=== PATIENT | female | born 1995 | race Caucasian/White ===

== ENCOUNTER 2017-07-24 22:08 | Emergency (ER) | payer BC ==
[~2017-07-24] VITALS: Ht 160 cm; Wt 90.7 kg
[~2017-07-24 22:08] MED LIST: BIRTH CONTORL; NITR-65 PO; PHEN-640 PO
--- OUTSIDE RECORDS SUMMARY | 2017-07-24 22:14 | XMS REPORT | Continuity of Care Document ---
Author Author [employer] Organization [facility] Address Unknown Phone Unavailable Care Team Providers Care Behavioral Health Specialist Name Role Phone [employer] Unavailable Unavailable Problems Medications Medication Details Route Status Patient Instructions Ordering Provider Order Date Source naproxen sodium 275 mg oral tablet 550 mg=2 tablet, PO , TID, x 4 day(s), # 24 tablet, Refill(s) 0 PO Active [facility] Reglan 10 mg oral tablet 10 mg=1 tablet, PO, TID, x 4 day(s), # 12 tablet, Refill(s) 0 PO Active [facility] freetext medication *NF* Active [facility] buffered lidocaine 1% in J-Tip 04/07/13 15:44:00 CDT, [id number], Routine, 0.2 mL, Intradermal, Injection, Unscheduled, PRN Needle Sticks Intradermal Active [facility] Allergies, Adverse Reactions, Alerts Immunizations Results Vital Signs Vital Sign Value Date Comments Source Total Pain Calculation 2 12/2012 [facility] Total Pain Calculation 2 12/2012 [facility] Respiratory Rate Monitored 23 BR/min 04/07/2013 [facility] Heart Rate Monitored 85 bpm 04/07/2013 [facility] Mean Arterial Pressure Cuff Monitored 77 mm[Hg] 04/07/2013 [facility] Diastolic Blood Pressure Cuff Monitored 53 mm[Hg] 04/07/2013 [facility] Systolic Blood Pressure Cuff Monitored 114 mm[Hg] 04/07/2013 [facility] Diastolic Blood Pressure Cuff Monitored 53 mm[Hg] 04/07/2013 [facility] Heart Rate Monitored 86 bpm 04/07/2013 [facility] Mean Arterial Pressure Cuff Monitored 77 mm[Hg] 04/07/2013 [facility] Systolic Blood Pressure Cuff Monitored 116 mm[Hg] 04/07/2013 [facility] Respiratory Rate Monitored 25 BR/min 04/07/2013 [facility] Respiratory Rate Monitored 13 BR/min 04/07/2013 [facility] Heart Rate Monitored 98 bpm 04/07/2013 [facility] Diastolic Blood Pressure Cuff Monitored 58 mm[Hg] 04/07/2013 [facility] Systolic Blood Pressure Cuff Monitored 120 mm[Hg] 04/07/2013 [facility] NBP Cuff Sizes Adult
(04/07/2013 16:23:00) <sup> </sup> 04/07/2013 [facility] NBP Activity Calm
(04/07/2013 16:23:00) <sup> </ sup> 04/07/2013 [facility] NBP Extremity Arm, left
(04/07/2013 16:23:00) < sup> </sup> 04/07/2013 [facility] NBP Position Lying
(04/07/2013 16:23:00) <sup> </ sup> 04/07/2013 [facility] NBP Extremity Arm, right
(04/07/2013 14:14:00) < sup> </sup> 04/07/2013 [facility] NBP Cuff Sizes Adult
(04/07/2013 14:14:00) <sup> </sup> 04/07/2013 [facility] NBP Position Sitting
(04/07/2013 14:14:00) <sup> </sup> 04/07/2013 [facility] Heart Rate 100 bpm 2012 [facility] Temperature Celsius 36.7 Karlee 04/07/2013 [facility] Temperature Route Oral
(04/07/2013 14:10:00) <sup > </sup> 04/07/2013 [facility] Respiratory Rate 16 BR/min [facility] NBP Activity Calm
(04/07/2013 14:10:00) <sup> </ sup> 04/07/2013 [facility] NBP Position Sitting
(04/07/2013 14:10:00) <sup> </sup> 04/07/2013 [facility] NBP Extremity Arm, left
(04/07/2013 14:10:00) < sup> </sup> 04/07/2013 [facility] NBP Cuff Sizes Adult
(04/07/2013 14:10:00) <sup> </sup> 04/07/2013 [facility] Encounters Location Location Details Encounter Type Encounter Number Reason For Visit Attending Provider ADM Date DC Date Status Source [facility] [id number] Headache/Migraine Shalonda Goyal 04/07/2013 04/07/2013 Active [facility] Procedures Plan of Care Social History Assessment and Plan Family History Advance Directives Functional Status
--- OUTSIDE RECORDS SUMMARY | 2017-07-24 22:14 | XMS REPORT | Clinical Summary ---
Author Author [facility] Address Unknown Phone Unavailable Support Name Relationship Address Phone , Lara Garciadayami Trivedi [employer] [address] [place] [address] Allergies No Known Allergies Current Medications Prescription Sig. Disp. Refills Start End Date Status Date NORTREL 0.5/35, 28, 03/09/20 Active 0.5-35 MG-MCG per tablet 13 Active Problems Problem Noted Date Depression 03/06/2013 Hyperprolactinemia (HCC) 03/06/2013 Weight gain 03/06/2013 Immunizations Name Dates Previously Given Next Due Hep B,adolescent or 1997 pediatric Family History Medical History Relation Name Comments Gastroesophageal Reflux Father Disease High cholesterol Father Hypertension Father High cholesterol Maternal Grandfather Hypertension Maternal Grandfather Gastroesophageal Reflux Maternal Disease Grandmother High cholesterol Maternal Grandmother Hypertension Maternal Grandmother Migraines Maternal Grandmother Hypertension Mother Gastroesophageal Reflux Paternal Disease Grandfather Heart attack Paternal Grandfather Heart disease Paternal Grandfather Heart failure Paternal Grandfather High cholesterol Paternal Grandfather Hypertension Paternal Grandfather Pacemaker Paternal Grandfather Stroke Paternal Grandfather Hypertension Paternal Grandmother Relation Name Status Comments Brother Alive Father Alive Maternal Grandfather Alive Maternal Grandmother Mother Alive Paternal Grandfather Paternal Grandmother Social History Tobacco Use Types Packs/Day Years Used Date Never Smoker Smokeless Tobacco: Never Used Tobacco Cessation: Counseling Given: No Alcohol Use Drinks/Week oz/Week Comments No Sex Assigned at Date Recorded Not on file Last Filed Vital Signs Vital Sign Reading Time Taken Blood Pressure 130/92 04/24/2016 11:43 AM CDT Pulse 71 04/24/2016 11:43 AM CDT Temperature 36.8 C (98.2 F) 04/24/2016 11:43 AM CDT Respiratory Rate 18 04/24/2016 11:43 AM CDT Oxygen Saturation 98% 04/24/2016 11:43 AM CDT Inhaled Oxygen - - Concentration Weight 78.9 kg (173 lb 14.4 oz) 04/24/2016 11:43 AM CDT Height 161.3 cm (5' 3.5") 03/16/2015 4:40 PM CDT Body Mass Index - - Plan of Treatment Health Maintenance Due Date Last Done Comments HPV Vaccines (1 of 3 - 2008 Female 3 Dose Series) Varicella Vaccines (1 of 2010 2 - 2 Dose Adolescent Series) MenB Vaccine (Bexsero) (1 2013 of 2) DTaP,Tdap,and Td Vaccines 2016 (1 - Tdap) Influenza Vaccine (#1) 2017 Results Not on filefrom Last 3 Months
--- OUTSIDE RECORDS SUMMARY | 2017-07-24 22:14 | XMS REPORT | Continuity of Care Document ---
Author Author [facility] Address Unknown Phone Unavailable Allergies Active Description Code Type Severity Reaction Onset Reported/Identified Relationship to Patient Clinical Status Yes NO NAME AVAILABLE 54060 DRUG N/ A N/A Medications There is no data. Problems Date Dx Coded Attending Type Code Diagnosis Diagnosed By 06/21/2016 RANGEL JUARES E04.9 Nontoxic goiter, unspecified Procedures Code Description Performed By [facility]formed [facility] 06/21/2016 Results Test Result Range CBC WITH DIFF - 03/05/15 10:49 WBC 9.4 10*3/uL 4.3-10.8 RBC 4.70 10*6/uL 4.20-5.40 HGB 12.5 g/dL 12.0-16.0 HCT 38.0 % 37-47 MCV 81 fL 81-99 MCH 27 pg 26-34 MCHC 33 g/dL 31-37 PLATELET COUNT 230 10*3/uL 150-400 RDWCV 14.0 % 11.5-14.5 DIFF TYPE AUTOMATED DIFF NEUTROPHIL % 76 % 36-66 LYMPHOCYTE % 18 % 24-44 MONOCYTE % 5 % 1-10 EOSINOPHIL % 1 % 0-6 BASOPHIL % 0 % 0-2 ABS. NEUTROPHILS 7.2 10*3/uL 1.55-7.13 ABS. LYMPHOCYTES 1.7 10*3/uL 1.0-4.8 ABS. MONOCYTES 0.5 10*3/uL 0.4-1.08 ABS. EOSINOPHILS 0.1 10*3/uL 0.0-0.65 ABS. BASOPHILS 0.0 10*3/uL 0.0-0.11 ABSOLUTE NUCLEATED RBC 0.00 10*3/uL PERCENT NUCLEATED RBC 0 BASIC METABOLIC PANEL - 03/05/15 10:49 POTASSIUM 4.5 mmol/L 3.5-5.1 CALCIUM 9.5 mg/dL 8.6-10.6 GLUCOSE 85 mg/dL 70-115 BUN 10 mg/dL 8-21 CREATININE 0.8 mg/dL 0.6-1.1 SODIUM 137 mmol/L 136-145 CHLORIDE 107 mmol/L 98-110 CO2 26 mmol/L 22-29 GFR ESTIMATED NOT AFR/AM PATIENT <19 YRS, CALC NOT VALID GFR ESTIMATED IF AFR/AM PATIENT <19 YRS, CALC NOT VALID ANION GAP 4 5-15 Encounters ACCT No. Visit Date/Time Discharge Status Pt. Type Provider Facility Loc./Unit Complaint [id number] 04/24/2016 11:35:42 04/24/2016 23:59:59 CLS Outpatient TIGRETROY MANZANARES [facility] EXPCR [id number] 06/21/2016 10:57:03 06/21/2016 23:59:00 DIS Outpatient RANGEL JUARES [facility] FIC [id number] 03/05/2015 09:22:00 03/05/2015 11:35:00 DIS Emergency NAVEEN GALVAN [facility] FED [id number] 03/20/2014 15:07:21 03/20/2014 23:59:00 DIS Outpatient DESIREE BEST [facility] FLBORANDY [id number] 09/08/2014 12:08:00 Document Registration [id number] 08/31/2014 13:42:07 Document Registration [id number] 06/28/2016 00:00:00 06/28/2016 23:59:59 CLS Outpatient [facility] SFOB
--- NOTE | 2017-07-25 01:24 | ED Cough/URI ---
General Chief Complaint: Cough/Cold/Flu Symptoms Stated Complaint: SOB,COUGH,BRONCHIITIS Nursing Triage Note: PT REPORTS COUGH X 3 WEEKS. REPORTS WORSE THIS EVENING. PT REPORTS INCREASE IN FAINTNESS AND BODYACHES STARTING THIS WEEK. PT ALSO REPORTS INTERMITTENT FEVERS STARTING MONDAY. Source: patient Exam Limitations: no limitations History of Present Illness Date Seen by Provider: Jul 25, 2017 Time Seen by Provider: 01:24 Allergies and Home Medications Allergies Coded Allergies: No Known Drug Allergies (Unverified , 05/01/16) Home Medications Albuterol Sulfate 1 Puff Puff, 2 PUFF IH Q4H PRN for SHORTNESS OF BREATH, #1 Ref 0 1 PUFF = 90 MCG Prescribed by: ABA SPENCER on 07/25/17203 Cefdinir 300 Mg Capsule, 300 MG PO BID, #14 Ref 0 Prescribed by: ABA SPENCER on 07/25/17203 Nitrofurantoin Monohyd/M-Cryst 100 Mg Capsule, 100 MG PO BID, #20 Prescribed by: GRIS LOZANO on 05/01/16 193 Phenazopyridine HCl 200 Mg Tablet, 1 TAB PO TID, #15 Prescribed by: GRIS LOZANO on 05/01/161934 Prednisone 20 Mg Tab, 40 MG PO DAILY, #10 Ref 0 Prescribed by: ABA SPENCER on 07/25/17203 [ Contorl] , (Reported) : No LMP: Jul 03, 2017 Past Qfilqje-Cetije-Wagkfm Hx Patient Social History Alcohol Use: Denies Use Recreational Drug Use: No Smoking Status: Never a Smoker Recent Foreign Travel: No Contact w/Someone Who Travel: No Recent Infectious Disease Expo: No Recent Hopitalizations: No Surgeries History of Surgeries: No Respiratory History of Respiratory Disorde: No Cardiovascular History of Cardiac Disorders: No Neurological History of Neurological Disord: No Reproductive System Hx Reproductive Disorders: No Genitourinary History of Genitourinary Disor: No Genitourinary Disorders: UTI-Chronic Gastrointestinal History of Gastrointestinal Di: No Musculoskeletal History of Musculoskeletal Dis: No Endocrine History of Endocrine Disorders: No HEENT History of HEENT Disorders: No Cancer History of Cancer: No Psychosocial History of Psychiatric Problem: No Integumentary History of Skin or Integumenta: No Blood Transfusions History of Blood Disorders: No Physical Exam Vital Signs Vital Sign - Last 12Hours 07/24/17 07/25/17 22:57 02:03 Temp 97.5 Pulse 86 Resp 18 B/P (MAP) 139/87 Pulse Ox 98 O2 Delivery Room Air Capillary Refill : Progress/Results/Core Measures Suspected Sepsis SIRS Temperature:97.5 Pulse: Respiratory Rate: Blood Pressure / Mean: Results/Orders Lab Results Laboratory Tests Test 07/25/17 01:38 Range/Units Group A Streptococcus Screen NEGATIVE NEGATIVE Micro Results Microbiology 07/24/17 Influenza Types A,B Antigen (LUCÍA) - Final, Complete My Orders Orders - ABA SPENCER Chest Pa/Lat (2 View) (07/25/17 01:33) Albuterol/Ipra Inhalation Soln (Duoneb I (07/25/17 01:45) Rapid Strep A Screen (07/25/17 01:33) Svn Sm Volume Nebulizer Rt-Rfs (07/25/17 01:33) Medications Given in ED Current Medications Medications Dose Ordered Sig/Tere Route Start Time Stop Time Status Last Admin Dose Admin Albuterol/ Ipratropium 3 ml ONCE ONCE INH 07/25/17 01:45 07/25/17 01:46 DC 07/25/17 02:03 3 ML Vital Signs/I&O Vital Sign - Last 12Hours 07/24/17 07/25/17 22:57 02:03 Temp 97.5 Pulse 86 Resp 18 B/P (MAP) 139/87 Pulse Ox 98 O2 Delivery Room Air Capillary Refill : Departure Impression Impression: Primary Impression: Bronchitis, acute Additional Impression: Pharyngitis, acute Disposition: 01 HOME, SELF-CARE Condition: Improved Departure-Patient Inst. Decision time for Depature: 02:01 Referrals: [facility] (PCP/Family) Primary Care Physician Patient Instructions: Acute Bronchitis, Adult (DC), Sore Throat in Adults Add. Discharge Instructions: All discharge instructions reviewed with patient and/or family. Voiced understanding. Medications as instructed. Tylenol Extra Strength over-the- counter as directed for pain or fever. Ibuprofen 800 mg by mouth every 8 hours as needed for pain or fever. Over the counter lozenges and sprays over-the- counter as needed. Cool humidifier. Follow-up with [facility] for recheck. Return to the emergency department for worsened symptoms or any other concerns. Scripts Cefdinir (Cefdinir) 300 Mg Capsule 300 MG PO BID, #14 CAP 0 Refills Prov: ABA SPENCER 07/25/17 Prednisone (Prednisone) 20 Mg Tab 40 MG PO DAILY, #10 TAB 0 Refills Prov: ABA SPENCER 07/25/17 Albuterol Sulfate (VENTOLIN HFA) 1 Puff Puff 2 PUFF IH Q4H Y for SHORTNESS OF BREATH, #1 EA 0 Refills 1 PUFF = 90 MCG Prov: ABA SPENCER 07/25/17 Work/School Note: Work Release Form Date Seen in the Emergency Department: Jul 25, 2017 Return to Work: Jul 26, 2017 Restrictions: Return-No Fever (24hrs) ABA SPENCER Jul 25, 2017 01:24
[2017-07-25] MEDS ORDERED: RT-ALBUTEROL/IPRATROPIUM 3 ML (DUONEB) VIAL INH ONE (01:45)
[2017-07-25] MEDS ORDERED: CEFD300C3 PO (02:04)
[2017-07-25] MEDS ORDERED: PRD20T PO (02:04)
[2017-07-25] MEDS ORDERED: RT-ALBUINH IH (02:04)
--- NOTE | 2017-07-25 08:11 | Diagnostic Imaging Report ---
INDICATION: Cough for 3 weeks and difficulty breathing. Time of exam: 2:03 AM No prior studies are available for comparison. FINDINGS: The heart size is normal. The lungs are clear. No pleural effusion or pneumothorax is identified. The pulmonary vascularity is normal. IMPRESSION: No acute abnormality detected. Dictated by: Dictated on workstation # [id number]
== END 2017-07-25 02:24 | disposition home or self-care (01) ==
LOC: EDUNIT# 22:08 → ER 22:09
DX: J20.9 Acute bronchitis, unspecified (principal); J02.9 Acute pharyngitis, unspecified
CPT/HCPCS: 71046; 87430; 87804; 94640; 99282